=== PATIENT | male | born 1970 | race Caucasian/White ===

== ENCOUNTER 2018-09-13 13:54 | Outpatient (REF) | payer BC, SELFPAY ==
--- NOTE | 2018-09-13 13:30 | SKI_PTH ---
PATIENT: HAFSA AJ LOC: [facility] U#:[id number] AGE/SX: 48/M ROOM: RE09/13/[address]: Wili Rivera V : 1970 BED: DIS: 09/13/2018 SPEC #: [id number] RECD: 09/13/18 18:27 STATUS: MADY CM #: [id number] LUPE: 09/13/18 13:[address]: Wili Rivera V DEPT: Surgical Specimen RECD BY: Romana Luna Tissues: 1 - SKIN BIOPSY(SHAVE/PUNCH) Procedures: SKIN LEVEL 4 Comments: [id number]
== END 2018-09-13 14:14 ==
LOC: NCHCN 13:54
PROVIDERS: PCP Physician Assistant Medical; Visit Provider Physician Assistant Medical
DX: D23.61 Other benign neoplasm of skin of right upper limb, including shoulder (principal); L81.8 Other specified disorders of pigmentation
CPT/HCPCS: 88305